=== PATIENT | female | born 1990 | race Caucasian/White ===

== ENCOUNTER 2019-09-13 13:05 | Inpatient (IN) | payer MEDICAID ==
[~2019-09-13] VITALS: Ht 172.7 cm; Wt 96.2 kg
[2019-09-13] MEDS ORDERED: OXYTOCIN 30 UNITS/LACT RINGERS 500 ML IV ONE ×2 (14:14→22:25)
[2019-09-13] MEDS ORDERED: RINGERS SOLUTION,LACTATED 1,000 ML IV PRN (14:14)
[2019-09-13] MEDS ORDERED: CITRIC ACID/SODIUM CITRATE 30 ML SOLUTION UDCUP PO PRN (14:15)
[2019-09-13] MEDS ORDERED: FentaNYL CITRATE-PF 100 MCG/2 ML VIAL IVP PRN (14:15)
[2019-09-13] MEDS ORDERED: METHYLERGONOVINE MALEATE 0.2 MG/ML VIAL IM PRN (14:15)
[2019-09-13] MEDS ORDERED: TERBUTALINE SULFATE 1 MG/ML VIAL SQ PRN (14:15)
[2019-09-13] MEDS ORDERED: METOCLOPRAMIDE HCL 5 MG/ML 2 ML VIAL IVP PRN (14:15)
[2019-09-13 15:06] VITALS: BP 120/66
[2019-09-13] MEDS ORDERED: PREN-217 PO (15:14)
[2019-09-13] MEDS ORDERED: OXYTOCIN 30 UNITS/LACT RINGERS 500 ML IV PRN (16:16)
[2019-09-13 16:20] LABS: BASOPHILS % (AUTO) 0.3 % (0.0-2.0); EOSINOPHILS % (AUTO) 0.2 % (1.0-6.0); HEMOGLOBIN 10.6 g/dL (12.0-16.0); LYMPHOCYTES # (AUTO) 1.9 K/uL (1.0-4.8); LYMPHOCYTES % (AUTO) 13.7 % (22.0-44.0); MEAN CORPUSCULAR HEMOGLOBIN 26.5 pg (26.0-34.0); MEAN CORPUSCULAR HGB CONC 32.2 G/dL (31.0-37.0); MEAN CORPUSCULAR VOLUME 82 fL (80-100); MONOCYTES % (AUTO) 7.2 % (2.0-9.0); NEUTROPHILS # (AUTO) 10.8 K/uL (1.8-7.7); NEUTROPHILS % (AUTO) 78.6 % (40.0-70.0); PLATELET COUNT (AUTO) 281 K/uL (150-450); RED BLOOD CELL COUNT(AUTO) 4.01 MIL/uL (4.00-5.20); RED CELL DISTRIBUTION WIDTH 15.4 % (11.5-14.5)
[2019-09-13] MEDS: RINGERS SOLUTION,LACTATED 1,000 ML IV SCH ×3 (16:43→22:20)
[2019-09-13] MEDS ORDERED: OXYGEN THERAPY IH SCH (20:00)
[2019-09-13] MEDS ORDERED: ROPIVACAINE HCL/PF 0.2% 100 ML ED ONE (20:43)
[2019-09-13] MEDS ORDERED: MINERAL OIL 30 ML UDCUP VG ONE (21:45)
[2019-09-13] MEDS ORDERED: LANOLIN 7 GM OINTMENT TP PRN (22:30)
[2019-09-13] MEDS ORDERED: LIDOCAINE/PF 1% 30 ML VIAL INJ PRN (22:30)
[2019-09-13] MEDS ORDERED: OxyCODONE HCL/ACETAMINOPHEN 5-325 MG TABLET PO PRN ×2 (22:30)
[2019-09-13] MEDS ORDERED: BENZOCAINE 20%/MENTHOL 56 GM SPRAY CANISTER TP PRN (22:30)
[2019-09-13] MEDS ORDERED: GLYCERIN/WITCH HAZEL LEAF 40 PADS JAR TP PRN (22:30)
[2019-09-14] MEDS: IBUPROFEN 800 MG TABLET PO PRN ×3 (00:19→15:25)
[2019-09-14 06:41] LABS: BASOPHILS % (AUTO) 0.7 % (0.0-2.0); EOSINOPHILS % (AUTO) 0.3 % (1.0-6.0); HEMATOCRIT 29.8 % (36-46); HEMOGLOBIN 9.7 g/dL (12.0-16.0); LYMPHOCYTES # (AUTO) 2.4 K/uL (1.0-4.8); LYMPHOCYTES % (AUTO) 12.5 % (22.0-44.0); MEAN CORPUSCULAR HEMOGLOBIN 26.6 pg (26.0-34.0); MEAN CORPUSCULAR HGB CONC 32.5 G/dL (31.0-37.0); MEAN CORPUSCULAR VOLUME 82 fL (80-100); MONOCYTES # (AUTO) 1.3 K/uL (0.1-1.0); MONOCYTES % (AUTO) 6.7 % (2.0-9.0); NEUTROPHILS # (AUTO) 15.3 K/uL (1.8-7.7); NEUTROPHILS % (AUTO) 79.8 % (40.0-70.0); PLATELET COUNT (AUTO)-OB 250 K/uL (150-450); RED BLOOD CELL COUNT(AUTO) 3.64 MIL/uL (4.00-5.20); RED CELL DISTRIBUTION WIDTH 15.1 % (11.5-14.5)
[2019-09-14] MEDS: MAGNESIUM HYDROXIDE SUSPENSION 30 ML UDCUP PO PRN ×2 (08:33→20:24)
[2019-09-14] MEDS ORDERED: IBUP-2070 PO (15:54)
[2019-09-14] MEDS ORDERED: DOCU-275 PO (15:55)
[2019-09-15] MEDS: IBUPROFEN 800 MG TABLET PO PRN ×2 (06:29→11:18)
[2019-09-15] MEDS ORDERED: FERR-82 PO (11:38)
[2019-09-15] MEDS ORDERED: IBUP-2071 PO (11:39)
== END 2019-09-15 13:00 | disposition home or self-care (01) | DRG 560 ==
LOC: OBSVTOIN 13:05 → 4S 13:05
PROVIDERS: ADMIT Obstetrics & Gynecology; ATTEND Obstetrics & Gynecology
PROC: 10E0XZZ Delivery of Products of Conception, External Approach (ICD-10-PCS; principal; 2019-09-13)
PROC: 0KQM0ZZ Repair Perineum Muscle, Open Approach (ICD-10-PCS; 2019-09-13)
PROC: 10907ZC Drainage of Amniotic Fluid, Therapeutic from Products of Conception, Via Natural or Artificial Opening (ICD-10-PCS; 2019-09-13)
PROC: 3E0R3BZ Introduction of Anesthetic Agent into Spinal Canal, Percutaneous Approach (ICD-10-PCS; 2019-09-13)
PROC: 00HU33Z Insertion of Infusion Device into Spinal Canal, Percutaneous Approach (ICD-10-PCS; 2019-09-13)
DX: O70.1 Second degree perineal laceration during delivery (principal); Z37.0 Single live birth; Z3A.40 40 weeks gestation of pregnancy
CPT/HCPCS: 86592; 86762; 86850; 86900; 86901; 87340; J2210; J2590; J2795; J7120